=== PATIENT | male | born 1995 | race Caucasian/White ===

== ENCOUNTER 2021-07-17 08:44 | Emergency (ER) | payer BC ==
--- NOTE | 2021-07-17 09:35 | EDM.PDOC ---
ED HPI GENERAL MEDICAL PROBLEM - General Chief Complaint: General Stated Complaint: COVID+, Time Seen by Provider: 07/17/21 09:12 Source of Information: Reports: Patient, RN Notes Reviewed History Limitations: Reports: No Limitations - History of Present Illness INITIAL COMMENTS - FREE TEXT/NARRATIVE: 25-year-old gentleman presents emergency department today with complaint of h ypoxia, he was recently diagnosed with COVID-19 on Monday of this week which would be July 12 has had symptoms for about 6 days. Body aches fevers general fatigue and weakness he is unvaccinated. He measured his O2 saturation finger probe while asleep reclining in a recliner at night - Related Data Allergies Allergy/AdvReac Type Severity Reaction Status Date / Time No Known Allergies Allergy Verified 07/17/21 09:01 Home Meds: Home Meds Albuterol Sulfate [Albuterol Sulfate Hfa] 2 puff INH Q4H PRN 07/17/21 [History] predniSONE [Prednisone] 4 mg PO DAILY 07/17/21 [History] Past Medical History - Past Health History Medical/Surgical History: Denies Medical/Surgical History Social & Family History - Tobacco Use Tobacco Use Status *Q: Never Tobacco User - Recreational Drug Use Recreational Drug Use: No ED ROS GENERAL - Review of Systems Review Of Systems: See Below Constitutional: Reports: Fever, Weakness, Fatigue Respiratory: Reports: Shortness of Breath, Cough Cardiovascular: Reports: Dyspnea on Exertion GI/Abdominal: Reports: No Symptoms Musculoskeletal: Reports: Muscle Pain ED EXAM, GENERAL - Physical Exam Exam: See Below Exam Limited By: No Limitations General Appearance: Alert, WD/WN, No Apparent Distress Respiratory/Chest: No Respiratory Distress, Lungs Clear, Normal Breath Sounds, No Accessory Muscle Use, Chest Non-Tender Cardiovascular: Regular Rate, Rhythm, No Murmur Course - Vital Signs Last Recorded V/S: Last Vital Signs Temp 97.0 F 07/17/21 09:00 Pulse 86 07/17/21 09:00 Resp 18 07/17/21 09:00 BP 148/79 H 07/17/21 09:00 Pulse Ox 97 07/17/21 09:00 Departure - Departure Time of Disposition: 09:35 Disposition: Home, Self-Care 01 Condition: Fair Clinical Impression: COVID-19 - Discharge Information Instructions: 10 Things You Can Do to Manage Your COVID-19 Symptoms at Home - [facility] (03/05/2021) Referrals: PCP,None [Primary Care Provider] - Additional Instructions: The outpatient treatment center will call you for an appointment time for your monoclonal antibody treatment, call or return to the emergency department worsening of symptoms Sepsis Event Note (ED) - Evaluation Sepsis Screening Result: No Definite Risk - Focused Exam Vital Signs: Vital Signs Temp Pulse Resp BP Pulse Ox 07/17/21 09:00 97.0 F 86 18 148/79 H 97 - Assessment/Plan Plan: Assessment Acuity = acute Site and laterality = viral syndrome Etiology = COVID-19 Manifestations = body aches Location of injury = Home Lab values = none Plan He is a candidate for monoclonal antibody therapy therefore order was provided hopefully they will get that done on Monday this upcoming week This note was dictated using Quixey voice recognition software please call with any questions on syntax or grammar.
== END 2021-07-17 09:46 | disposition home or self-care (01) ==
LOC: JP.ED 08:44
DX: U07.1 COVID-19 (principal)
CPT/HCPCS: 99283

== ENCOUNTER 2021-07-19 16:44 | Emergency (ER) | payer BC ==
[2021-07-19] MEDS ORDERED: Codeine/guaiFENesin 10-100 MG/5 ML Syrup 5 ML Cup PO ONE (17:38)
[2021-07-19] MEDS ORDERED: Ondansetron 4 MG Tab.DIS PO ONE (17:43)
--- NOTE | 2021-07-19 17:49 | EDM.PDOC ---
<Tong Carrasquillo G - Last Filed: 07/19/21 17:44> ED HPI GENERAL MEDICAL PROBLEM - General Chief Complaint: General Stated Complaint: HEART IS RACING Time Seen by Provider: 07/19/21 17:35 Source of Information: Reports: Patient, Old Records, RN History Limitations: Reports: No Limitations - History of Present Illness INITIAL COMMENTS - FREE TEXT/NARRATIVE: 25 yo male presents with nausea, myalgias, and mild SOB. His heart was racing at home when he decided to come in, this is better now. He was dx'd last Monday with Covid and had monoclonal antibody infusion earlier today. He has had acetaminophen in the last 4 hrs. Onset: Gradual Onset Date: 07/19/21 Duration: Minutes:, Improving Location: Reports: Generalized Quality: Reports: Other (mild chest tightness with breathing) Severity: Mild Improves with: Reports: Rest Worsens with: Reports: Movement (exertion) Context: Reports: Other (See HPI) Associated Symptoms: Reports: Cough, Fever/Chills, Malaise, Nausea/Vomiting, Shortness of Breath (with exertion) Treatments [employer]: Reports: Acetaminophen - Related Data Allergies Allergy/AdvReac Type Severity Reaction Status Date / Time No Known Allergies Allergy Verified 07/17/21 09:01 Home Meds: Home Meds Albuterol Sulfate [Albuterol Sulfate Hfa] 2 puff INH Q4H PRN 07/17/21 [History] predniSONE [Prednisone] 4 mg PO DAILY 07/17/21 [History] Amoxicillin 500 mg PO DAILY 07/19/21 [History] Past Medical History - Past Health History Medical/Surgical History: Denies Medical/Surgical History Social & Family History - Tobacco Use Tobacco Use Status *Q: Never Tobacco User Second Hand Smoke Exposure: No - Caffeine Use Caffeine Use: Reports: Coffee Other Caffeine Use: 10 cups day - Alcohol Use Days Per Week of Alcohol Use: 2 Number of Drinks Per Day: 2 Total Drinks Per Week: 4 - Recreational Drug Use Recreational Drug Use: No ED ROS GENERAL - Review of Systems Review Of Systems: See Below Constitutional: Reports: Chills, Malaise, Decreased Appetite HEENT: Reports: No Symptoms Respiratory: Reports: Cough. Denies: Shortness of Breath, Wheezing, Sputum Cardiovascular: Reports: Dyspnea on Exertion, Palpitations (now better). Denies: Edema GI/Abdominal: Reports: Decreased Appetite, Nausea, Vomiting (not lately). Denies: Diarrhea : Reports: No Symptoms Musculoskeletal: Reports: No Symptoms Skin: Reports: No Symptoms Neurological: Reports: No Symptoms Psychiatric: Reports: No Symptoms ED EXAM, GENERAL - Physical Exam Exam: See Below Exam Limited By: No Limitations General Appearance: Alert, WD/WN Eye Exam: Bilateral Eye: Normal Inspection Ears: Normal External Exam, Normal Canal, Hearing Grossly Normal, Normal TMs Ear Exam: Bilateral Ear: Auricle Normal, Canal Normal Nose: Normal Inspection, No Blood Throat/Mouth: Normal Inspection, Normal Lips, Normal Oropharynx, Normal Voice, No Airway Compromise Head: Atraumatic, Normocephalic Neck: Normal Inspection Respiratory/Chest: No Respiratory Distress, Lungs Clear, Normal Breath Sounds, No Accessory Muscle Use Cardiovascular: Regular Rate, Rhythm, No Edema, Tachycardia GI/Abdominal: Soft, Non-Tender Back Exam: Normal Inspection. No: CVA Tenderness (R), CVA Tenderness (L) Extremities: Normal Inspection, Normal Range of Motion, Non-Tender, No Pedal Edema Neurological: Alert, Oriented, CN II-XII Intact, Normal Cognition, No Motor/Sensory Deficits Psychiatric: Normal Affect, Normal Mood Skin Exam: Warm, Dry, Intact, Normal Color, No Rash Departure - Departure Disposition: Home, Self-Care 01 Clinical Impression: COVID-19, Nausea & vomiting, Cough - Discharge Information Instructions: Symptoms of COVID-19 - [facility] (10/12/2020), How to Wear and Take Off Your Mask - [facility] (11/19/2020), Nausea and Vomiting, Adult, [id number], 10 Things You Can Do to Manage Your COVID-19 Symptoms at Home - [facility] (03/05/2021), COVID-19: What to Do If You Are Sick- [facility] (11/04/2020) Referrals: PCP,None [Primary Care Provider] - Forms: ED Department Discharge Additional Instructions: As discussed it is recommended that you continue to use acetaminophen (Tylenol) every 4-6 hours per [id number] label maximum dose in 24 hours is 4000 mg. You may also use ibuprofen (Motrin, Advil) every 6 hours as prescribed tonight in the ER this medication is available through the [facility]. Medications will help with any fever chills body aches pain discomfort headaches that may occur Is also recommended that you use the ondansetron protheses Zofran) every 6 hours at least for the next 2 to 3 days on a regular basis to control any nausea and vomiting so that you may ensure that you can drink plenty of fluids to include water, juice, sports drinks of choiceGatorade, Powerade, body armor, coconut water. Other options include popsicles, Jell-O, soups. When you are feeling better your appetite will return and you may resume as tolerated I have also provided you with a prescription for cough medications to include Robitussin with codeine as well as Tessalon Perles. You may find these helpful but you may also not find them helpful as it is very variable in nature with a Covid related cough symptoms As discussed you are in Covid isolation home quarantine until 27 July it is from time of diagnosis which you indicated was on July 12 for 10 to 14 days. Your isolation should be extended if you are still having active symptoms other than the dry intermittent cough this means that if you are using nausea medication or if you are using any acetaminophen or ibuprofen for fevers chills body aches or discomfort otherwise or if you continue to have any temperatures. It was discussed that you may have your Covid immunization in 90 days from today secondary to receiving monoclonal antibody infusion. I do strongly encouraged that you obtain your immunization when you are eligible Follow-up with your primary care provider/primary care clinic should you have any further questions or concerns. Return to the emergency room if you have worsening symptoms to include pulse oxygen monitoring less than 90 to 92% on room air Sepsis Event Note (ED) - Evaluation Sepsis Screening Result: No Definite Risk <Gifty Hassan - Last Filed: 07/19/21 19:35> Course - Vital Signs Text/Narrative:: 1800--report received from Dr Zhu, ER at change of shift/transfer of care. Patient currently receiving IVF hydration. anticipate d/c home when completed 1914--patient reexamined by this oncoming physician noted to have continued frequent cough complaints coughing is dry in nature. Patient does appear to feel unwell but is nontoxic in nature he denies any current nausea or vomiting and has tolerated oral fluids here in the emergency room at this time. Patient declines IV fluids as offered at this point stating that he can tolerate drinking after receiving the Zofran. I did discuss with him home use of acetaminophen and ibuprofen on a rotational basis as well as regular use of ondansetron (Zofran) for nausea vomiting. Will provide a dose of Compazine and ibuprofen prior to discharge to help with any body aches discomfort as well as additional nausea control I did encourage him to drink plenty of fluids including water sports drinks of choice juice, soups, Jell-O's, popsicles that when he is feeling better he may resume his normal diet as tolerated. Verbalized understanding and agreement with plan of care and is aware that he needs to remain on Covid isolation home quarantine for 10 to 14 days after diagnosis which was on 12 July thus he is able to come out of isolation on 27 July unless he is still having active symptoms other than his dry cough as it was discussed that his dry cough may last for several weeks to months timeframe. I also did discuss with him that he may obtain his Covid immunization 90 days past monoclonal antibody infusion which would be 3 months or 90 days from today. Gen--appears ill in nature, non-toxic, alert/oriented Neck--supple, NT, no adenopathy C/V--tachycardia on telemetry, cap refill <3s, rad 2+ Resp--dry intermittent cough, Lungs CTAB, easy/unlabored GI--+BS, soft, NT/ND Ext--FERNANDEZ well, no edema, FROM Skin--pink, warm, dry Psych--alert/oriented x 3, cooperative Last Recorded V/S: Last Vital Signs Temp 97.2 F 07/19/21 17:24 Pulse 101 H 07/19/21 17:24 Resp 18 07/19/21 17:24 BP 123/63 07/19/21 17:24 Pulse Ox 95 07/19/21 17:24 - Orders/Labs/Meds Orders: Active Orders 24 hr Category Date Time Status Cardiac Monitoring [RC] .As Directed Care 07/19/21 16:48 Active Labs: Laboratory Tests 07/19/21 Range/Units 17:43 Urine Color Yellow (YELLOW) Urine Appearance Clear (CLEAR) Urine pH 6.5 (5.0-8.0) Ur Specific [place] 1.025 (1.008-1.030) Urine Protein Trace H (NEGATIVE) mg/dL Urine Glucose (UA) Negative (NEGATIVE) mg/dL Urine Ketones Negative (NEGATIVE) mg/dL Urine Occult Blood Negative (NEGATIVE) Urine Nitrite Negative (NEGATIVE) Urine Bilirubin Negative (NEGATIVE) Urine Urobilinogen 2.0 H (0.2-1.0) EU/dL Ur Leukocyte Esterase Negative (NEGATIVE) Urine RBC 0-5 (0-5) Urine WBC 0-5 (0-5) Ur Epithelial Cells Rare Amorphous Sediment Not seen Urine Bacteria Few Urine Mucus Few Meds: Medications Discontinued Medications Generic Name Dose Route Start Last Admin Trade Name Freq PRN Reason Stop Dose Admin Guaifenesin/Codeine Phosphate 10 ml 07/19/21 17:38 07/19/21 17:52 Codeine/Guaifenesin 10-100 Mg/5 Ml Syrup 5 Ml Cup PO 07/19/21 17:39 10 ml ONETIME ONE Administration Ondansetron HCl 4 mg 07/19/21 17:43 07/19/21 17:52 Ondansetron 4 Mg Tab.Dis PO 07/19/21 17:44 4 mg ONETIME ONE Administration Departure - Departure Time of Disposition: 19:28 Condition: Good - Discharge Information *PRESCRIPTION DRUG MONITORING PROGRAM REVIEWED*: Not Applicable *COPY OF PRESCRIPTION DRUG MONITORING REPORT IN PATIENT ANAYELI: Not Applicable Sepsis Event Note (ED) - Focused Exam Vital Signs: Vital Signs Temp Pulse Resp BP Pulse Ox 07/19/21 17:24 97.2 F 101 H 18 123/63 95 07/19/21 17:04 97.2 F 101 H 18 123/63 95
[2021-07-19] MEDS ORDERED: Prochlorperazine 10 MG Tab PO ONE (19:22)
[2021-07-19] MEDS ORDERED: Ibuprofen 600 MG Tab PO ONE (19:23)
== END 2021-07-19 19:55 | disposition home or self-care (01) ==
LOC: JP.ED 16:44
DX: U07.1 COVID-19 (principal); R11.2 Nausea with vomiting, unspecified
CPT/HCPCS: 81001; 99284; A9270

== ENCOUNTER 2021-07-20 10:26 | Emergency (ER) | payer BC ==
--- NOTE | 2021-07-20 11:19 | EDM.PDOC ---
ED HPI GENERAL MEDICAL PROBLEM - General Chief Complaint: Respiratory Problem Stated Complaint: COVID AND PNEUMONIA POSITIVE-STRUGGLING TO BREATHE Time Seen by Provider: 07/20/21 11:10 Source of Information: Reports: Patient History Limitations: Reports: No Limitations - History of Present Illness INITIAL COMMENTS - FREE TEXT/NARRATIVE: 25-year-old male, ill for the last 11 days and recently diagnosed with Covid received monoclonal antibody therapy yesterday. He feels more short of breath today and wanted to be checked. He has a persistent cough, occasional vomiting, just feels awful, generalized body aches and low-grade fevers. Onset: Gradual Duration: Day(s): (11 days of symptoms) Associated Symptoms: Reports: Cough, Fever/Chills, Headaches, Loss of Appetite, Malaise, Nausea/Vomiting, Shortness of Breath, Weakness Generalized Pain Score (Numeric/FACES): 7 - Related Data Allergies Allergy/AdvReac Type Severity Reaction Status Date / Time No Known Allergies Allergy Verified 07/20/21 11:03 Home Meds: Home Meds Albuterol Sulfate [Albuterol Sulfate Hfa] 2 puff INH Q4H PRN 07/17/21 [History] predniSONE [Prednisone] 4 mg PO DAILY 07/17/21 [History] Amoxicillin 500 mg PO DAILY 07/19/21 [History] Benzonatate 100 mg PO ASDIRECTED PRN 07/20/21 [History] Ondansetron [Zofran ODT] 4 mg PO Q6H PRN 07/20/21 [History] Past Medical History - Past Health History Medical/Surgical History: Denies Medical/Surgical History Social & Family History - Tobacco Use Tobacco Use Status *Q: Never Tobacco User - Caffeine Use Caffeine Use: Reports: Coffee Other Caffeine Use: 10 cups day - Recreational Drug Use Recreational Drug Use: No ED ROS GENERAL - Review of Systems Review Of Systems: See Below Constitutional: Reports: Fever, Chills, Malaise HEENT: Denies: Ear Pain Respiratory: Reports: Shortness of Breath, Wheezing, Cough Cardiovascular: Denies: Chest Pain, Palpitations GI/Abdominal: Reports: Nausea, Vomiting. Denies: Abdominal Pain, Diarrhea Musculoskeletal: Reports: Muscle Pain (Hurts all over) Skin: Reports: No Symptoms Neurological: Reports: Headache, Weakness ED EXAM, GENERAL - Physical Exam Exam: See Below Exam Limited By: No Limitations General Appearance: Alert, No Apparent Distress (Looks uncomfortable but not distressed) Eye Exam: Bilateral Eye: Normal Inspection Head: Atraumatic Respiratory/Chest: No Respiratory Distress, Wheezing (A few scattered expiratory wheezes but overall excellent air movement, no labored breathing and O2 saturations at 98%) Cardiovascular: Regular Rate, Rhythm, Tachycardia (Just mild tachycardia) Neurological: Alert, Oriented Skin Exam: Warm, Dry Course - Vital Signs Last Recorded V/S: Last Vital Signs Temp 97.1 F 07/20/21 11:00 Pulse 109 H 07/20/21 11:00 Resp 18 07/20/21 11:00 BP 151/92 H 07/20/21 11:00 Pulse Ox 98 07/20/21 11:00 - Re-Assessments/Exams Free Text/Narrative Re-Assessment/Exam: 07/20/21 12:08 Explained to the patient that unfortunately there is nothing more to offer at this time with normal saturations, relatively clear lungs and just receiving monoclonal antibody therapy yesterday. Continue with supportive care with fluids, symptomatic medications and return if worsening. Departure - Departure Time of Disposition: 11:21 Disposition: Home, Self-Care 01 Clinical Impression: COVID-19 - Discharge Information Instructions: COVID-19 Referrals: PCP,None [Primary Care Provider] - Forms: ED Department Discharge Care Plan Goals: Continue with the medications you have been given as prescribed. Return if you have persistent low oxygen saturations, but you should start to improve over the next several days. Sepsis Event Note (ED) - Focused Exam Vital Signs: Vital Signs Temp Pulse Resp BP Pulse Ox 07/20/21 11:00 97.1 F 109 H 18 151/92 H 98
== END 2021-07-20 11:50 | disposition home or self-care (01) ==
LOC: JP.ED 10:26
DX: U07.1 COVID-19 (principal)
CPT/HCPCS: 99284